=== PATIENT | male | born 1985 | race Caucasian/White ===

== ENCOUNTER 2021-02-22 10:37 | Emergency (ER) | payer OTHER ==
[~2021-02-22] VITALS: Ht 170.2 cm; Wt 63.5 kg
== END 2021-02-22 12:10 | disposition home or self-care (01) ==
LOC: ER 10:37
DX: S62.610A Displaced fracture of proximal phalanx of right index finger, initial encounter for closed fracture (principal); W27.8XXA Contact with other nonpowered hand tool, initial encounter
CPT/HCPCS: 73130; 99283-25

== ENCOUNTER 2022-01-03 18:50 | Emergency (ER) | payer OTHER ==
[~2022-01-03] VITALS: Ht 170.2 cm; Wt 59.0 kg
[2022-01-03] MEDS ORDERED: BUPROPION XL450 MG PO (19:04)
== END 2022-01-03 20:08 | disposition home or self-care (01) ==
LOC: ER 18:50
DX: S20.211A Contusion of right front wall of thorax, initial encounter (principal); W22.8XXA Striking against or struck by other objects, initial encounter
CPT/HCPCS: 71101; 99283-25

== ENCOUNTER 2022-01-30 15:08 | Emergency (ER) | payer OTHER ==
[~2022-01-30] VITALS: Ht 170.2 cm; Wt 61.2 kg
[~2022-01-30 15:08] MED LIST: BUPROPION XL450 MG PO; IBUP800 PO
[2022-01-30] MEDS ORDERED: CYCL10 PO (16:41)
== END 2022-01-30 16:53 | disposition home or self-care (01) ==
LOC: ER 15:08
DX: M25.512 Pain in left shoulder (principal); F32.A Depression, unspecified
CPT/HCPCS: A9270; J1885

== ENCOUNTER 2022-04-27 21:11 | Emergency (ER) | payer OTHER ==
[~2022-04-27] VITALS: Ht 170.2 cm; Wt 68.3 kg
[~2022-04-27 21:11] MED LIST changes: +CYCL10 PO
[2022-04-27 22:28] LABS: BASOPHILS ABSOLUTE AUTO 0.04 K/mm3 (0.00-0.23); BASOPHILS PERCENT AUTO 0 % (0-2); EOSINOPHILS ABSOLUTE AUTO 0.08 K/mm3 (0.00-0.68); EOSINOPHILS PERCENT AUTO 1 % (0-6); Hematocrit 42.4 % (37.0-53.0); Hemoglobin 14.9 g/dL (13.5-17.5); IMMATURE GRAN ABSOLUTE AUTO 0.03 K/mm3 (0.00-0.10); IMMATURE GRAN PERCENT AUTO 0 % (0-1); LYMPHOCYTES ABSOLUTE AUTO 2.18 K/mm3 (0.84-5.20); LYMPHOCYTES PERCENT AUTO 22 % (21-46); MONOCYTES ABSOLUTE AUTO 0.74 K/mm3 (0.16-1.47); MONOCYTES PERCENT AUTO 7 % (4-13); Mean Corpuscular HGB 30.9 pg (26.0-34.0); Mean Corpuscular HGB Conc 35.1 g/dL (31.5-36.5); Mean Corpuscular Volume 88 fL (80-100); Mean Platelet Volume 10.4 fL (9.1-12.4); NEUTROPHILS ABSOLUTE AUTO 6.91 K/mm3 (1.96-9.15); NEUTROPHILS PERCENT AUTO 69 % (41-73); Platelet Count 221 K/mm3 (150-400); RDW Coefficient Variation 11.5 % (11.7-14.2); Red Blood Cell Count 4.82 M/mm3 (4.30-5.90); White Blood Cell Count 9.98 K/mm3 (4.00-11.30)
[2022-04-27 22:46] LABS: Albumin, Blood 4.2 g/dL (3.4-5.0); Albumin/Globulin Ratio 1.2 (0.8-1.8); Bilirubin, Total 0.6 mg/dL (0.1-1.0); Bun/Creatinine Ratio 12.7 (12.0-20.0); Calcium, Blood 8.2 mg/dL (8.5-10.1); Creatinine, Blood 0.95 mg/dL (0.60-1.20); Globulin, Blood 3.6 g/dL (2.2-4.0); Potassium, Blood 3.7 mmol/L (3.5-5.5); Total Protein, Blood 7.8 g/dL (6.4-8.2)
[2022-04-27 23:03] LABS: Source, Urine Voided
[2022-04-27 23:05] LABS: Bilirubin, Urine Neg (Neg); Blood, Urine 5+ (Neg); Glucose Qualitative, Urine Neg (Neg); Ketones, Urine 2+ (Neg); Leukocyte Esterase, Urine 1+ (Neg); Nitrite, Urine Neg (Neg); Protein, Urine 2+ (Neg); Specific Gravity, Urine 1.015 (1.003-1.022); Urobilinogen, Urine 1+ (Normal)
[2022-04-27 23:23] LABS: Appearance, Urine Cloudy (Clear); Color, Urine Brown (P-Yellow)
[2022-04-27 23:24] LABS: Bacteria Rare /hpf; Mucus Mod (0-Heavy); Red Blood Cells, Urine TNTC /hpf (0-2); Squamous Epithelial Cells Rare /hpf (Few); White Blood Cells, Urine 0-2 /hpf (0-5)
[2022-04-28] MEDS ORDERED: OXYC5 PO (05:00)
[2022-04-28] MEDS ORDERED: TAMS.4ER PO (05:00)
== END 2022-04-28 05:24 | disposition home or self-care (01) ==
LOC: ER 21:11
PROVIDERS: Student in an Organized Health Care Education/Training Program
DX: N13.2 Hydronephrosis with renal and ureteral calculous obstruction (principal); F41.9 Anxiety disorder, unspecified; F32.A Depression, unspecified; Z79.899 Other long term (current) drug therapy
CPT/HCPCS: 36415; 74176; 80053; 81001; 85025; A9270; J1885; J2405